=== PATIENT | female | born 1985 | race Caucasian/White ===

== ENCOUNTER 2018-01-02 18:41 | Emergency (ER) | payer BC ==
[~2018-01-02] VITALS: Wt 62.7 kg
[~2018-01-02 18:41] MED LIST: AMOXICILLIN 50500 MG PO; CEPHALEXIN500 M1 PO; DOXYCYCLINE100 M2 PO; DUO-KAPS1 CAP PO; FERROUS SU325 MG/TAB PO; FOLIC ACID; GENTAMICIN EYE D5 ML OS; LEXAPRO5 MG PO; MULTIPLE VITAMI1 CAP PO; NO HOME MEDICATIONS; NORCO 325 MG-51 TAB PO; PHENERGAN 25 TA25 MG PO; PREDNISONE20 M1 PO; PRENATAL VITAMI1 TA5 PO; PRENATAL1 TA1 PO; PRENATAL1 TA2 PO; PRILOSEC 20MG20 MG PO; SUDAFED60 MG PO; VALTREX500 MG PO; ZOFRAN ODT4 MG PO
[2018-01-02 18:53] VITALS: TEMP 97.9
[2018-01-02 19:06] LABS: HEMOGLOBIN 15.1 g/dl (12.5-16.0); MEAN CELL VOLUME 88 fl (80.0-100.0); MEAN CORPUSCULAR HEMOGLOBIN 31 pg (27.0-31.0); MEAN CORPUSCULAR HGB CONC 35 g/dl (33.0-37.0); MEAN PLATELET VOLUME 11.3 fl (7.4-10.4); PLATELET COUNT 241 K/mm3 (130-400); RED BLOOD COUNT 4.87 M/mm3 (4.10-5.30)
[2018-01-02 19:10] LABS: COLLECTION METHOD CLEAN CATCH
[2018-01-02 19:18] LABS: C-REACTIVE PROTEIN 0.8 mg/dL (0.0-0.9); CALCIUM 10.3 mg/dL (8.4-10.2); CREATININE, serum 0.66 mg/dL (0.52-1.25); POTASSIUM 4.2 mmol/L (3.4-5.0)
[2018-01-02 19:21] LABS: NEUTROPHILS 81 % (42.0-75.2)
[2018-01-02 19:22] LABS: BAND 11 % (0-10); LYMPHOCYTE 5 % (20.0-51.0); PLATELET ESTIMATE NORMAL (NORMAL)
[2018-01-02 19:24] LABS: MUCOUS Present /lpf; PH 5 (5-8); SQUAMOUS EPITHELIAL 0-2 /hpf; URINE APPEARANCE Hazy; URINE BACTERIA None Seen /hpf; URINE BILIRUBIN Negative (NEGATIVE); URINE BLOOD 2+ (NEGATIVE); URINE COLOR Yellow; URINE GLUCOSE Negative (NEGATIVE); URINE KETONE 1+ (NEGATIVE); URINE LEUKOCYTE ESTERASE Negative (NEGATIVE); URINE NITRATE Negative (NEGATIVE); URINE PROTEIN(semi-quant) Negative (NEGATIVE); URINE RBC 0-2 /hpf; URINE UROBILINOGEN Negative (NEGATIVE)
[2018-01-02] MEDS ORDERED: ZOFRAN ODT4 MG PO (19:40)
[2018-01-02 21:05] VITALS: BP 106/76; PULSE 104
== END 2018-01-02 21:03 | disposition home or self-care (01) ==
LOC: COL.ER 18:41
PROVIDERS: Family Medicine
DX: K52.9 Noninfective gastroenteritis and colitis, unspecified (principal); E86.9 Volume depletion, unspecified; R11.2 Nausea with vomiting, unspecified
CPT/HCPCS: J2405; J2550; J7030; J7120

== ENCOUNTER 2019-03-18 14:09 | Emergency (ER) | payer BC ==
[~2019-03-18] VITALS: Ht 152.4 cm; Wt 65.5 kg
[2019-03-18 14:12] VITALS: TEMP 97.4
[2019-03-18] MEDS ORDERED: LILETTA52 MG IY (14:32)
[2019-03-18 14:55] LABS: BASO % 0.4 % (0.0-2.0); EOS % 0.4 % (0-4.0); GRAN # 5.2 (1.4-6.5); GRAN % 70.6 % (42.2-75.2); HEMATOCRIT 40.2 % (37.0-47.0); HEMOGLOBIN 13.4 g/dl (12.5-16.0); LYMPH # 1.6 (1.2-3.4); LYMPH % 21.1 % (20.0-51.0); MEAN CELL VOLUME 92 fl (80.0-100.0); MEAN CORPUSCULAR HEMOGLOBIN 31 pg (27.0-31.0); MEAN CORPUSCULAR HGB CONC 33 g/dl (33.0-37.0); MEAN PLATELET VOLUME 12.3 fl (7.4-10.4); MONO # 0.5 (0.1-0.6); MONO % 7.2 % (1.7-9.3); PLATELET COUNT 191 K/mm3 (130-400); RED BLOOD COUNT 4.39 M/mm3 (4.10-5.30); REDCELL DISTRIBUTION WIDTH-CV 12.3 % (11.5-14.5)
[2019-03-18 14:56] LABS: ALBUMIN 4.6 gm/dL (3.5-5.0); BILIRUBIN,TOTAL 0.4 mg/dL (0.0-1.0); CALCIUM 9.5 mg/dL (8.4-10.2); CREATININE, serum 0.51 (0.52-1.25); POTASSIUM 3.6 mmol/L (3.4-5.0); TOTAL PROTEIN 8.8 gm/dL (6.4-8.2)
[2019-03-18 14:58] LABS: C-REACTIVE PROTEIN 0.5 mg/dL (0.0-0.9)
[2019-03-18 15:05] LABS: COLLECTION METHOD CLEAN CATCH
[2019-03-18 15:54] LABS: MUCOUS Present /lpf; PH 8 (5-8); SQUAMOUS EPITHELIAL 0-2 /hpf; URINE APPEARANCE Cloudy; URINE BACTERIA None Seen /hpf; URINE BILIRUBIN Negative (NEGATIVE); URINE BLOOD 2+ (NEGATIVE); URINE COLOR Yellow; URINE GLUCOSE Negative (NEGATIVE); URINE KETONE Negative (NEGATIVE); URINE LEUKOCYTE ESTERASE Negative (NEGATIVE); URINE NITRATE Negative (NEGATIVE); URINE PROTEIN(semi-quant) Negative (NEGATIVE); URINE UROBILINOGEN Negative (NEGATIVE)
[2019-03-18] MEDS ORDERED: ANTIVERT 25MG25 MG PO (16:37)
[2019-03-18] MEDS ORDERED: ZOFRAN 4MG T4 MG/TAB PO (16:37)
[2019-03-18 17:00] VITALS: BP 102/71; PULSE 84
== END 2019-03-18 17:00 | disposition home or self-care (01) ==
LOC: COL.ER 14:09
PROVIDERS: Emergency Medicine
DX: R42 Dizziness and giddiness (principal); E11.9 Type 2 diabetes mellitus without complications; Z98.51 Tubal ligation status
CPT/HCPCS: J2060; J2405; J7030

== ENCOUNTER 2021-11-14 10:06 | Emergency (ER) | payer BC ==
[~2021-11-14] VITALS: Ht 152.4 cm; Wt 62.3 kg
[~2021-11-14 10:06] MED LIST changes: +ANTIVERT 25MG25 MG PO; +LILETTA52 MG IY; +ZOFRAN 4MG T4 MG/TAB PO
[2021-11-14 10:29] VITALS: BP 122/79; TEMP 97.9
[2021-11-14] MEDS ORDERED: SPRINTEC 35 MCG1 TAB PO (10:32)
[2021-11-14] MEDS ORDERED: FLEXERIL 1010 MG/TAB PO (11:03)
[2021-11-14 11:30] VITALS: PULSE 77
== END 2021-11-14 11:30 | disposition home or self-care (01) ==
LOC: COL.ER 10:06
DX: S16.1XXA Strain of muscle, fascia and tendon at neck level, initial encounter (principal); S39.012A Strain of muscle, fascia and tendon of lower back, initial encounter; S09.90XA Unspecified injury of head, initial encounter; V00.111A Fall from in-line roller-skates, initial encounter; Y93.51 Activity, roller skating (inline) and skateboarding
CPT/HCPCS: J1885